=== PATIENT | female | born 1970 | race Asian ===

== ENCOUNTER → 2018-07-08 12:58 | Outpatient (CLI) | payer OTHER, MEDICAID, SELFPAY ==
--- NOTE | 2018-07-08 13:01 | DI.MRI.S_ITS ---
PROCEDURE: MR HEAD/BRAIN WO CON INDICATIONS: New daily headache and imbalance TECHNIQUE: Noncontrast axial T1 spin echo, axial T2 fast spin echo, sagittal and axial FLAIR, coronal T2 fast spin echo, axial gradient echo, axial diffusion and ADC through the brain. COMPARISON: None. FINDINGS: Image quality: Excellent. CSF Spaces: Basal cisterns are patent. No extra-axial fluid collections. Ventricles are normal in size and shape. Brain: No intracranial masses or hemorrhage. Rasheed/white matter interface is normal. Brainstem appears normal. Diffusion-weighted images demonstrate no acute ischemic insult. No chronic ischemic insults. Normal intravascular flow voids are present. Borderline low lying tonsils. Skull and face: Calvarium has normal marrow signal. Orbits appear normal. Sinuses: Small mucus tension cyst or polyp seen in the floor the right maxillary antrum. IMPRESSION: No intracranial signal abnormality. Minimal right maxillary sinus disease. Dictated by: Chidi Collins M.D. on 07/08/2018 at 14:47 Approved by: Chidi Collins M.D. on 07/08/2018 at 14:53
== END ==
PROVIDERS: PCP Nurse Practitioner; Visit Provider Family Medicine
DX: G44.52 New daily persistent headache (NDPH) (principal); R26.89 Other abnormalities of gait and mobility
CPT/HCPCS: 70551

== ENCOUNTER → 2020-03-08 09:06 | Outpatient (CLI) | payer OTHER, MEDICAID, SELFPAY ==
--- NOTE | 2020-03-08 | DI.MRI.S_ITS ---
PROCEDURE: MR HEAD/BRAIN WO/W CON INDICATIONS: Edema of unspecified orbit TECHNIQUE: Noncontrast axial T1 spin echo, axial T2 fast spin echo, sagittal and axial FLAIR, axial gradient echo, axial diffusion and ADC through the brain. Precontrast thin section fat saturated T1-weighted images were obtained through the orbits. Thin section coronal STIR images were obtained through the orbits. After the administration of contrast, axial and coronal T1 spin echo with fat saturation through the brain. Thin section coronal and axial postcontrast thin section T1-weighted fat-saturated images were obtained through the orbits. COMPARISON: [facility], , MR HEAD/BRAIN WO CON, 07/08/2018, 13:50. FINDINGS: Image quality: Excellent. Cavernous sinuses: No significant abnormality of the cavernous sinuses can be seen. The orbits demonstrate no significant abnormality. The globes appear minimally elongated in AP dimension. This is stable compared to 2018. No significant periorbital edema or abnormal enhancement can be seen. CSF spaces: Ventricles are normal in size and shape. Basal cisterns are patent. No extra-axial fluid collections. Brain: No acute intracranial bleeds or mass effects. Rasheed-white matter interface is intact. No abnormal intracranial enhancement. Diffusion weighted images demonstrate no acute ischemic insults. Brainstem appears normal. Normal intravascular flow voids are present. Skull and face: Calvarial marrow signal is normal. Orbits appear normal. Sinuses: Sinuses and mastoids appear clear. A left sided hammad bullosa is incidentally noted. IMPRESSION: No imaging explanation is found for this patient's presenting symptoms. No han edema or enhancement can be seen involving the right orbit or the periorbital region. Note is made that the globes appear minimally elongated in AP dimension, which is similar to 2018. Dictated by: Pablo Nielson M.D. on 03/08/2020 at 10:15 Approved by: Pablo Nielson M.D. on 03/08/2020 at 10:28
== END ==
PROVIDERS: PCP Family Medicine; Referring Provider Ophthalmology; Visit Provider Ophthalmology
DX: H05.229 Edema of unspecified orbit (principal)
CPT/HCPCS: 70553

== ENCOUNTER → 2021-02-04 09:51 | Outpatient (CLI) | payer OTHER, MEDICAID, SELFPAY ==
[2021-02-04 11:36] LABS: COVID19 -Nasal RAPID Negative (Negative)
== END ==
PROVIDERS: PCP Physician Assistant; Visit Provider Surgery
DX: Z20.822 Contact with and (suspected) exposure to COVID-19 (principal)
CPT/HCPCS: 87635; C9803

== ENCOUNTER 2021-02-07 07:06 | Day surgery (SDC) | payer OTHER, MEDICAID, SELFPAY ==
[2021-02-07 08:20] VITALS: BP 113/74; PULSE 88; RESP 12; TEMP 37.1; O2SAT 100; BMI 22.2
--- NOTE | 2021-02-07 08:24 | PM.PREOP ---
Pre-operative Note Interval Note History & Physical reviewed/Exam performed by Physician: Yes Changes to H&P: No
[2021-02-07] MEDS: LACTATED RINGERS 1,000 ML 200 ML IV (08:31)
[2021-02-07] MEDS: MIDAZOLAM 5 MG/5 ML VIAL IV (08:40)
[2021-02-07] MEDS: fentaNYL 250 MCG/5 ML INJ IV (08:46)
[2021-02-07 09:03] VITALS: BP 92/58; PULSE 70; RESP 13; TEMP 36.2; O2SAT 96
--- NOTE | 2021-02-07 09:04 | PM.OP.ENDO ---
Operative Date/Time/Diagnoses Date of procedure: 02/07/21 Time of procedure: 09:04 Pre-op diagnosis: Rectal bleeding Post-op diagnosis: same Procedure & Clinicians Study performed: Colonoscopy Same procedure as scheduled: Yes Indications: Rectal bleeding Surgeon: Sanya Multani Procedure Notes Procedure in detail: Medications: Conscious sedation using 4 mg IV midazolam and 150mcg IV of fentanyl The history and physical was performed/updated and the patient is ASA class is 1. The procedure was discussed in detail with the patient. Potential risks complications including infection, bleeding, missed diagnosis, perforation, need for surgery, and were explained. Their questions were answered and informed consent was obtained. Patient was brought to the procedure room and placed standard monitoring equipment. The patient's vital signs were monitored continuously throughout the entire procedure. Prior to starting time-out was performed. The patient was placed in the left lateral recumbent position. Procedural sedation was administered. Examination began with a thorough inspection of the perianal area there was no evidence of fissures, fistulae, external hemorrhoids or cutaneous malignancy. The colonoscopy scope was then placed into the anal canal and was advanced to the cecum, which was identified by the ileocecal valve, the appendiceal orifice and the confluence of the taenia. The scope was then slowly withdrawn examining colon thoroughly in all directions, irrigating it of any residual stool. 1. No masses or polyps 2. Grade 2 internal no active bleeding The patient tolerated the procedure well. They will be discharged once criteria are met. The prep was of good/excellent quality. The withdrawl time was 7 minutes. The sedation time was 24 minutes. Complications: none Impression: Normal colonoscopy Post-procedure Recommendations: Colonscopy in 10 years and High fiber diet
[2021-02-07 09:08] VITALS: BP 95/60; PULSE 88; RESP 13; O2SAT 95
[2021-02-07 09:12] VITALS: BP 100/67; PULSE 81; RESP 11; O2SAT 96
[2021-02-07 09:18] VITALS: BP 102/66; PULSE 78; RESP 12; O2SAT 98
[2021-02-07 09:26] VITALS: BP 101/66; PULSE 70; RESP 12; TEMP 36.2; O2SAT 97
== END 2021-02-07 09:27 | disposition home or self-care (01) ==
PROVIDERS: PCP Physician Assistant; Referring Provider Physician Assistant; Visit Provider Surgery
PROC: 0DJD8ZZ Inspection of Lower Intestinal Tract, Via Natural or Artificial Opening Endoscopic (ICD-10-PCS; CPT 45378; principal; 2021-02-07 08:30)
DX: K62.5 Hemorrhage of anus and rectum (principal); K64.1 Second degree hemorrhoids
CPT/HCPCS: 45378; 99152; J2250; J3010